=== PATIENT | male | born 1990 | race Caucasian/White ===

== ENCOUNTER 2019-12-24 19:24 | Observation (INO) | payer OTHER ==
[2019-12-24] MEDS ORDERED: NITROGLYCERIN OINT 1 INCH/GM PACKET TOPICAL STA (20:00)
[2019-12-24] MEDS ORDERED: ASPIRIN 81 MG PO STA (20:00)
--- NOTE | 2019-12-24 20:03 | ED ---
General Adult HPI - General Chief complaint: Chest Pain Stated complaint: Chest pain Time Seen by Provider: 12/24/19 19:50 Source: patient, family, RN notes reviewed Mode of arrival: ambulatory Limitations: no limitations - History of Present Illness Initial comments: Patient is a pleasant 29-year-old male presenting to the emergency Department with complaints of chest discomfort. Onset of symptoms was yesterday. Symptoms were worse yesterday. Discomfort is currently 4 or 5/10. Discomfort feels tight without radiation. Discomfort is slightly worse with inspiration. No dyspnea or nausea. Patient was sweaty couple of days ago however not with chest discomfort. No leg pain or leg swelling. Patient did have some fatigue or couple of weeks ago. Patient states 3 of his roommates were diagnosed with coronavirus at that time however he was negative. Patient still believes that he likely had the virus. - Related Data Allergies Allergy/AdvReac Type Severity Reaction Status Date / Time No Known Allergies Allergy Verified 12/24/19 19:28 Review of Systems ROS Statement: Those systems with pertinent positive or pertinent negative responses have been documented in the HPI. ROS Other: All systems not noted in ROS Statement are negative. Constitutional: Denies: fever Eyes: Denies: eye pain ENT: Denies: ear pain Respiratory: Denies: cough, dyspnea Cardiovascular: Reports: as per HPI, chest pain Endocrine: Reports: as per HPI Gastrointestinal: Denies: abdominal pain, nausea, vomiting Genitourinary: Denies: dysuria Musculoskeletal: Denies: back pain Skin: Denies: rash Neurological: Denies: weakness Past Medical History Past Medical History: No Reported History History of Any Multi-Drug Resistant Organisms: None Reported Past Surgical History: Tonsillectomy Smoking Status: Never smoker Past Alcohol Use History: None Reported Past Drug Use History: Marijuana General Exam Limitations: no limitations General appearance: alert, in no apparent distress Head exam: Present: normocephalic Eye exam: Present: normal appearance Neck exam: Present: normal inspection Respiratory exam: Present: normal lung sounds bilaterally. Absent: chest wall tenderness Cardiovascular Exam: Present: regular rate, normal rhythm Expanded Peripheral pulses: 2+: Radial (R), Radial (L), Posterior Tibialis (R), Posterior Tibialis (L) GI/Abdominal exam: Present: soft. Absent: tenderness Extremities exam: Present: normal inspection. Absent: pedal edema, calf tenderness Neurological exam: Present: alert Psychiatric exam: Present: normal affect, normal mood Skin exam: Present: normal color Course Vital Signs 12/24/19 19:24 Temperature 97.6 F Pulse Rate 80 Respiratory 18 Rate Blood Pressure 147/87 O2 Sat by Pulse 98 Oximetry - Reevaluation(s) Reevaluation #1: 12/24/19 20:03 I did review EKG from the office showing right bundle-branch block and T-wave inversion in inferior and lateral. EKG Findings - EKG Comments: EKG Findings:: Normal sinus rhythm at 76. [place] 138. QRS 92. QT 366. QTc 411. Normal axis. Right ventricular conduction delay. Lateral T wave inversion. In ferior flattening to T wave inversion. Medical Decision Making - Medical Decision Making Patient reevaluated and resting comfortably in bed. Patient and family updated on results and plan. Case discussed with Dr. Chavez, who will admit covering with Dr. Alexander. - Lab Data Result diagrams: 12/24/19 20:07 12/24/19 20:07 Lab Results 12/24/19 12/24/19 12/24/19 Range/Units 20:07 20:07 20:07 WBC 11.1 H (3.8-10.6) k/uL RBC 5.88 (4.30-5.90) m/uL Hgb 16.8 (13.0-17.5) gm/dL Hct 48.9 (39.0-53.0) % MCV 83.1 (80.0-100.0) fL MCH 28.5 (25.0-35.0) pg MCHC 34.4 (31.0-37.0) g/dL RDW 12.0 (11.5-15.5) % Plt Count 258 (150-450) k/uL MPV 7.0 Neutrophils % 56 % Lymphocytes % 34 % Monocytes % 6 % Eosinophils % 2 % Basophils % 1 % Neutrophils # 6.2 (1.3-7.7) k/uL Lymphocytes # 3.7 (1.0-4.8) k/uL Monocytes # 0.6 (0-1.0) k/uL Eosinophils # 0.3 (0-0.7) k/uL Basophils # 0.1 (0-0.2) k/uL PT 10.0 (9.0-12.0) sec INR 1.0 (<1.2) APTT 25.5 (22.0-30.0) sec D-Dimer <0.17 (<0.60) mg/L FEU Sodium 140 (137-145) mmol/L Potassium 4.0 (3.5-5.1) mmol/L Chloride 105 (98-107) mmol/L Carbon Dioxide 30 (22-30) mmol/L Anion Gap 5 mmol/L BUN 12 (9-20) mg/dL Creatinine 1.15 (0.66-1.25) mg/dL Est GFR (CKD-EPI)AfAm >90 (>60 ml/min/1.73 sqM) Est GFR (CKD-EPI)NonAf 86 (>60 ml/min/1.73 sqM) Glucose 90 (74-99) mg/dL Calcium 9.8 (8.4-10.2) mg/dL Magnesium 1.9 (1.6-2.3) mg/dL Total Bilirubin 0.9 (0.2-1.3) mg/dL AST 30 (17-59) U/L ALT 20 (4-49) U/L Alkaline Phosphatase 73 (38-126) U/L Troponin I (0.000-0.034) ng/mL Total Protein 7.2 (6.3-8.2) g/dL Albumin 4.6 (3.5-5.0) g/dL 12/24/19 Range/Units 20:07 WBC (3.8-10.6) k/uL RBC (4.30-5.90) m/uL Hgb (13.0-17.5) gm/dL Hct (39.0-53.0) % MCV (80.0-100.0) fL MCH (25.0-35.0) pg MCHC (31.0-37.0) g/dL RDW (11.5-15.5) % Plt Count (150-450) k/uL MPV Neutrophils % % Lymphocytes % % Monocytes % % Eosinophils % % Basophils % % Neutrophils # (1.3-7.7) k/uL Lymphocytes # (1.0-4.8) k/uL Monocytes # (0-1.0) k/uL Eosinophils # (0-0.7) k/uL Basophils # (0-0.2) k/uL PT (9.0-12.0) sec INR (<1.2) APTT (22.0-30.0) sec D-Dimer (<0.60) mg/L FEU Sodium (137-145) mmol/L Potassium (3.5-5.1) mmol/L Chloride (98-107) mmol/L Carbon Dioxide (22-30) mmol/L Anion Gap mmol/L BUN (9-20) mg/dL Creatinine (0.66-1.25) mg/dL Est GFR (CKD-EPI)AfAm (>60 ml/min/1.73 sqM) Est GFR (CKD-EPI)NonAf (>60 ml/min/1.73 sqM) Glucose (74-99) mg/dL Calcium (8.4-10.2) mg/dL Magnesium (1.6-2.3) mg/dL Total Bilirubin (0.2-1.3) mg/dL AST (17-59) U/L ALT (4-49) U/L Alkaline Phosphatase (38-126) U/L Troponin I <0.012 (0.000-0.034) ng/mL Total Protein (6.3-8.2) g/dL Albumin (3.5-5.0) g/dL - Radiology Data Radiology results: image reviewed (Chest x-ray reveals no acute process) Disposition Clinical Impression: Chest pain Disposition: ADMITTED IP TO THIS HOSP Is patient prescribed a controlled substance at d/c from ED?: No Referrals: Clinton Alexander MD [Primary Care Provider] - 1-2 days Decision Time: 21:14
[2019-12-24 20:27] LABS: Basophils # (A) 0.1 k/uL (0-0.2); Basophils % (A) 1 %; Eosinophils # (A) 0.3 k/uL (0-0.7); Eosinophils % (A) 2 %; HCT 48.9 % (39.0-53.0); HGB 16.8 gm/dL (13.0-17.5); Lymphocytes # (A) 3.7 k/uL (1.0-4.8); Lymphocytes % (A) 34 %; MCH 28.5 pg (25.0-35.0); MCHC 34.4 g/dL (31.0-37.0); MCV 83.1 fL (80.0-100.0); Monocytes # (A) 0.6 k/uL (0-1.0); Monocytes % (A) 6 %; Neutrophils # (A) 6.2 k/uL (1.3-7.7); Neutrophils % (A) 56 %; Platelet Count 258 k/uL (150-450); RBC 5.88 m/uL (4.30-5.90); WBC 11.1 k/uL (3.8-10.6)
[2019-12-24 20:33] LABS: ALT 20 U/L (4-49); AST 30 U/L (17-59); African American GFR (CKD) >90 (>60 ml/min/1.73 sqM); Albumin 4.6 g/dL (3.5-5.0); Alkaline Phosphatase 73 U/L (38-126); Anion Gap 5 mmol/L; Blood Urea Nitrogen 12 mg/dL (9-20); Calcium 9.8 mg/dL (8.4-10.2); Carbon Dioxide 30 mmol/L (22-30); Chloride 105 mmol/L (98-107); Glucose 90 mg/dL (74-99); Magnesium 1.9 mg/dL (1.6-2.3); Non-African American GFR(CKD) 86 (>60 ml/min/1.73 sqM); Sodium 140 mmol/L (137-145); Total Bilirubin 0.9 mg/dL (0.2-1.3); Total Protein 7.2 g/dL (6.3-8.2)
[2019-12-24 20:40] LABS: D-Dimer <0.17 mg/L FEU (<0.60); Partial Thromboplastin Time 25.5 sec (22.0-30.0)
--- NOTE | 2019-12-24 20:47 | XR ---
EXAMINATION TYPE: XR chest 2V DATE OF EXAM: 12/24/2019 COMPARISON: NONE HISTORY: Chest pain. TECHNIQUE: Frontal and lateral views of the chest are obtained. FINDINGS: There is no focal air space opacity, pleural effusion, or pneumothorax seen. The cardiac silhouette size is within normal limits. The osseous structures are intact. IMPRESSION: No acute cardiopulmonary process.
[2019-12-24] MEDS ORDERED: NITROGLYCERIN SL TABS 0.4 MG TAB SUBLINGUAL PRN (21:14)
[2019-12-24 21:59] VITALS: RESP 16
[2019-12-25] MEDS ORDERED: ACETAMINOPHEN TAB 325 MG TAB PO PRN (01:06)
[2019-12-25 03:30] LABS: Cholesterol 157 mg/dL (<200); HDL Cholesterol 24 mg/dL (40-60); LDL Cholesterol,Calculated 100 mg/dL (0-99); Triglycerides 166 mg/dL (<150)
[2019-12-25] MEDS: NITROGLYCERIN OINT 1 INCH/GM PACKET TOPICAL SCH ×3 (04:56→12:34)
[2019-12-25 08:24] VITALS: BP 130/84; PULSE 72; TEMP 97.9
[2019-12-25] MEDS ORDERED: ASPIRIN 325 MG TAB PO SCH (09:00)
--- NOTE | 2019-12-25 09:21 | P.CRDCN ---
History of Present Illness Consult date: 12/25/19 Consult reason: chest pain Chief complaint: Chest pain History of present illness: This is a pleasant 29-year-old gentleman with no prior documented history of hypertension, no diabetes, no hyperlipidemia, nonsmoker, rare EtOH, he does use marijuana on a weekly basis. Patient states that on December 09 his roommate and his girlfriend tested positive for COVID, he himself was also tested, results came back negative. He presents to the hospital with symptoms of midsternal chest pressure with mild radiation to his left arm and left leg. He denies any associated shortness of breath, but does state that he had some mild associated diaphoresis. His EKG on presentation here showed a normal sinus rhythm with T wave inversion noted in the inferior lateral leads. A repeat EKG was performed in the morning which showed persistence of changes with some mild improvement. His blood pressure 106/70 with a heart rate in the 70s, 98% on room air. White blood cell count 11.1, hemoglobin 16.8, platelet count 258. D- dimer 0.017. Sodium 140, potassium 4.0, BUN 12, creatinine 1.1. Troponins were negative 3. Cholesterol 157, triglycerides 166, LDL 100 and HDL 24. At the time of my examination this morning, the patient is currently chest pain-free. Past Medical History Past Medical History: No Reported History Additional Past Medical History / Comment(s): Shingles. Ear infections once a year. History of Any Multi-Drug Resistant Organisms: None Reported Past Surgical History: Tonsillectomy Smoking Status: Never smoker Past Alcohol Use History: None Reported Past Drug Use History: Marijuana Medications and Allergies Home Medications Medication Instructions Recorded Confirmed Type No Known Home Medications 12/24/19 12/24/19 History Allergies Allergy/AdvReac Type Severity Reaction Status Date / Time No Known Allergies Allergy Verified 12/24/19 21:51 Physical Exam Vitals: Vital Signs Temp Pulse Pulse Resp BP BP Pulse Ox 12/25/19 08:20 97.9 F 72 16 130/84 99 12/25/19 04:45 97.7 F 57 L 16 113/74 100 12/24/19 23:15 98.5 F 72 16 106/72 98 12/24/19 22:58 98.6 F 85 16 119/83 12/24/19 22:00 98.1 F 16 12/24/19 21:00 84 16 126/86 98 12/24/19 20:16 84 16 141/99 98 12/24/19 19:24 97.6 F 80 18 147/87 98 Intake and Output 12/24/19 12/25/19 12/25/19 22:59 06:59 14:59 Other: Voiding Method Toilet Toilet # Voids 1 Weight 97.522 kg 97.522 kg PHYSICAL EXAMINATION: GENERAL: 29-year-old gentleman in no acute distress at the time of my examination HEENT: Head is atraumatic, normocephalic. Pupils equal, round. Sclera anicte kahlil. Conjunctiva are clear. Mucous membranes of the mouth are moist. Neck is supple. There is no elevated jugular venous pressure. No carotid bruit is heard. HEART EXAMINATION: Heart S1, S2 normal. No murmur or gallop heard. CHEST EXAMINATION: Lungs are clear to auscultation and precussion. No chest wall tenderness is noted on palpation or with deep breathing. ABDOMEN: Soft, nontender. Bowel sounds are heard. No organomegaly noted. EXTREMITIES: 2+ peripheral pulses with no evidence of peripheral edema and no calf tenderness noted. NEUROLOGIC patient is awake, alert and oriented 3 . . Results 12/24/19 20:07 12/24/19 20:07 Cardiac Enzymes 12/24/19 12/24/19 12/24/19 Range/Units 20:07 20:07 22:57 AST 30 (17-59) U/L Troponin I <0.012 <0.012 (0.000-0.034) ng/mL 12/25/19 Range/Units 03:00 AST (17-59) U/L Troponin I <0.012 (0.000-0.034) ng/mL Coagulation 12/24/19 Range/Units 20:07 PT 10.0 (9.0-12.0) sec APTT 25.5 (22.0-30.0) sec Lipids 12/25/19 Range/Units 03:00 Triglycerides 166 H (<150) mg/dL Cholesterol 157 (<200) mg/dL HDL Cholesterol 24 L (40-60) mg/dL CBC 12/24/19 Range/Units 20:07 WBC 11.1 H (3.8-10.6) k/uL RBC 5.88 (4.30-5.90) m/uL Hgb 16.8 (13.0-17.5) gm/dL Hct 48.9 (39.0-53.0) % Plt Count 258 (150-450) k/uL Comprehensive Metabolic Panel 12/24/19 Range/Units 20:07 Sodium 140 (137-145) mmol/L Potassium 4.0 (3.5-5.1) mmol/L Chloride 105 (98-107) mmol/L Carbon Dioxide 30 (22-30) mmol/L BUN 12 (9-20) mg/dL Creatinine 1.15 (0.66-1.25) mg/dL Glucose 90 (74-99) mg/dL Calcium 9.8 (8.4-10.2) mg/dL AST 30 (17-59) U/L ALT 20 (4-49) U/L Alkaline Phosphatase 73 (38-126) U/L Total Protein 7.2 (6.3-8.2) g/dL Albumin 4.6 (3.5-5.0) g/dL Current Medications Generic Name Dose Route Start Last Admin Trade Name Freq PRN Reason Stop Dose Admin Acetaminophen 650 mg 12/25/19 01:06 12/25/19 04:57 Acetaminophen Tab 325 Mg Tab PO 650 mg Q6HR PRN Administration Fever and/ or Pain Aspirin 325 mg 12/25/19 09:00 12/25/19 08:53 Aspirin 325 Mg Tab PO 325 mg DAILY STEPHANIE Administration Nitroglycerin 0.4 mg 12/24/19 21:14 Nitroglycerin Sl Tabs 0.4 Mg Tab SUBLINGUAL Q5M PRN Chest Pain Nitroglycerin 1 inch 12/25/19 00:00 12/25/19 06:47 Nitroglycerin Oint 1 Inch/Gm Packet TOPICAL Not Given Q6HR STEPHANIE Sodium Chloride 10 ml 12/25/19 09:00 12/25/19 08:53 Sodium Chloride 0.9% Flush 10 Ml Syringe IV 10 ml BID STEPHANIE Administration Intake and Output 12/24/19 12/25/19 12/25/19 22:59 06:59 14:59 Other: Voiding Method Toilet Toilet # Voids 1 Weight 97.522 kg 97.522 kg 12/24/19 20:07 12/24/19 20:07 EKG Interpretations (text) EKG showed a normal sinus rhythm with inferior lateral T-wave inversion Assessment and Plan Plan: Assessment and plan #1 chest pain, atypical features for acute coronary syndrome. Troponins negative 3. EKG shows a normal sinus rhythm with inferior lateral T-wave inversion, d-dimer negative #2 cardiac risk factors negative for hypertension, no diabetes, no hyperlipidemia, nonsmoker, no family history of premature coronary artery disease #3 recent exposure to COVID 19, rapid testing came back negative #4 weekly marijuana use Plan We will obtain an echocardiogram with Doppler study. Patient has also been advised to undergo stress echocardiographic study which will be performed today. Further recommendations will be based on the findings of his testing, and the patient's overall clinical course. DNP note has been reviewed, I agree with a documented findings and plan of care. Patient was seen and examined.
--- NOTE | 2019-12-25 10:00 | ECHOF ---
Referral Reason:Chest pain MEASUREMENTS -------- HEIGHT: 185.4 cm WEIGHT: 97.5 kg BP: 106/72 RVIDd: 3.3 cm (< 3.3) IVSd: 1.0 cm (0.6 - 1.1) LVIDd: 4.5 cm (3.9 - 5.3) LVPWd: 1.1 cm (0.6 - 1.1) IVSs: 1.5 cm LVIDs: 3.2 cm LVPWs: 1.8 cm LA Diam: 3.2 cm (2.7 - 3.8) LAESV Index (A-L): 22.15 ml/m Ao Diam: 3.0 cm (2.0 - 3.7) AV Cusp: 1.9 cm (1.5 - 2.6) MV EXCURSION: 23.102 mm (> 18.000) MV EF SLOPE: 137 mm/s (70 - 150) EPSS: 0.4 cm MV E Billy: 0.97 m/s MV DecT: 283 ms MV A Billy: 0.53 m/s MV E/A Ratio: 1.84 RAP: 5.00 mmHg RVSP: 17.98 mmHg FINDINGS -------- Sinus rhythm. This was a technically good study. The left ventricular size is normal. Left ventricular wall thickness is normal. Overall left vent ricular systolic function is normal with, an EF between 60 - 65 %. The right ventricle is mildly enlarged. Normal LA size by volume 22+/-6 ml/m2. The right atrium is normal in size. Interatrial and interventricular septum intact. The aortic valve is trileaflet and appears structurally normal. The mitral valve is normal. Mild tricuspid regurgitation present. Right ventricular systolic pressure is normal at < 35 mmHg. There is no pulmonic regurgitation present. The aortic root size is normal. Normal inferior vena cava with normal inspiratory collapse consistent with estimated right atrial pre ssure of 5 mmHg. The inferior vena cava is mildly dilated. There is no pericardial effusion. CONCLUSIONS -------- 1. The left ventricular size is normal. 2. Left ventricular wall thickness is normal. 3. Overall left ventricular systolic function is normal with, an EF between 60 - 65 %. 4. The right ventricle is mildly enlarged. 5. Mild tricuspid regurgitation present. 6. The inferior vena cava is mildly dilated. 7. There is no pericardial effusion. COMMUTATOR INSPECTOR: Keri Whitney RDCS
--- NOTE | 2019-12-25 13:12 | ECHOS ---
STRESS ECHOCARDIOGRAM LUMASON: Vial INDICATIONS: Chest pain. MEDICATIONS: BASELINE HEART RATE: 83 BASELINE BLOOD PRESSURE: 123/89 MAXIMUM HEART RATE: 177 MAXIMUM BLOOD PRESSURE: 183/67 85% MPHR: 162 100% MPHR: 190 METS: 11.5 MAXIMUM STAGE REACHED: III TOTAL EXERCISE TIME: 10:01 CLINICAL INFORMATION: Baseline EKG shows sinus rhythm, normal axis, normal intervals, with nonspecific ST-T wave changes. Patient exercised on Abram protocol for a total of 10 minutes achieving 11 METS, 93% of predicted maximal heart rate without chest pain or diagnostic ST- segment depression. Baseline echo shows normal left ventricular size, wall motion systolic function. Postexercise there is normal hyperdynamic response of all segments of myocardium noted. CONCLUSION: 1. Excellent exercise tolerance. 2. Negative stress test by EKG criteria. 3. Negative stress echo. MMODL / IJN: [id number] /
[2019-12-25] MEDS ORDERED: NAPROXEN 250 MG TAB PO STA (13:21)
[2019-12-25] MEDS ORDERED: COLCHICINE 0.6 MG EACH PO SCH (13:30)
--- NOTE | 2019-12-25 23:09 | P.HPIM ---
History of Present Illness H&P Date: 12/25/19 Chief Complaint: Chest pain History of presenting complaint: This is a pleasant 29-year-old patient of Dr. Clinton Alexander. Rather good health. Patient on December 08 met a friend of his with her good friend and patient was present with his girlfriend. They called him and told him that that tested positive for COVID. On December 09 patient and his girlfriend got tested for COVID. His girlfriend came back positive not him. For last 3 foot days patient been having burning pressure-like sensation in the chest. On and off. No fever no chills no change in appetite. No change in smell or taste. A couple of days patient did have some diarrhea. Otherwise rather active. Admitted for the same. Occasionally gets heartburn. Review of systems: GEN.: None EYES: None HEENT: None NECK: None RESPIRATORY: None CARDIOVASCULAR: As above GASTROINTESTINAL: None GENITOURINARY: None MUSCULOSKELETAL: None LYMPHATICS: None HEMATOLOGICAL: None PSYCHIATRY: None NEUROLOGICAL: None Past medical history to include: Shingles, ear infection Social history: Lives with girlfriend. Does not smoke. Marijuana occasionally. Works in sales Family history: Reviewed, noncontributory to presentation Physical examination: VITAL SIGNS: 97.6, 80, 18, 147/87, 98% on room air GENERAL: BMI 28.4, sitting up, comfortable. EYES: Pupils equal. Conjunctiva normal. HEENT: External appearance of nose and ears normal, oral cavity grossly normal. NECK: JVD not raised; masses not palpable. HEART: First and second heart sounds are normal; no edema. LUNGS: Respiratory rate normal; clear to auscultation. ABDOMEN: Soft, nontender, liver spleen not palpable, no masses palpable. PSYCH: Alert and oriented x3; mood and affect normal. NEUROLOGICAL: Cranial nerves grossly intact; no facial asymmetry, power and sensation grossly intact. LYMPHATICS: No lymph nodes palpable in the axilla and neck INVESTIGATIONS, reviewed in the clinical context: White count 11.1 hemoglobin 16.8 platelets 258 potassium 4 creatinine 1.15 LDL 100 EKG tracing personally reviewed by me-sinus rhythm, some cough elevation ST in lead V1 and V2 and some T wave changes. 2-D echocardiogram EF 60-65% Assessment: -Patient presents as a burning pressure-like sensation in the chest. Some nonspecific T-wave changes. Patient does not have any obvious COVID 19 findings. Possible mild pericarditis Plan: Cardiology was consulted. Patient undergo a stress echocardiogram. Started on naproxen". colchicine. Past Medical History Past Medical History: No Reported History Additional Past Medical History / Comment(s): Shingles. Ear infections once a year. History of Any Multi-Drug Resistant Organisms: None Reported Past Surgical History: Tonsillectomy Smoking Status: Never smoker Past Alcohol Use History: None Reported Past Drug Use History: Marijuana Medications and Allergies Home Medications Medication Instructions Recorded Confirmed Type Colchicine [Colcrys] 0.6 mg PO BID #60 each 12/25/19 Rx Naproxen [Naprosyn] 250 mg PO BID #30 tab 12/25/19 Rx Allergies Allergy/AdvReac Type Severity Reaction Status Date / Time No Known Allergies Allergy Verified 12/24/19 21:51 Physical Exam Vitals: Vital Signs Temp Pulse Resp BP Pulse Ox 12/25/19 08:20 97.9 F 72 16 130/84 99 12/25/19 04:45 97.7 F 57 L 16 113/74 100 12/24/19 23:15 98.5 F 72 16 106/72 98 Intake and Output 12/25/19 12/25/19 12/26/19 14:59 22:59 06:59 Intake Total 480 Balance 480 Intake: Oral 480 Other: Voiding Method Toilet # Voids 2 Weight 97.52 kg Results CBC & Chem 7: 12/24/19 20:07 12/24/19 20:07 Labs: Abnormal Lab Results - Last 24 Hours (Table) 12/25/19 Range/Units 03:00 Triglycerides 166 H (<150) mg/dL LDL Cholesterol, Calc 100 H (0-99) mg/dL HDL Cholesterol 24 L (40-60) mg/dL Thrombosis Risk Factor Assmnt - Choose All That Apply Any of the Below Risk Factors Present?: No Other Risk Factors: No Thrombosis Risk Factor Assessment Level: Very Low Risk
--- NOTE | 2019-12-25 23:12 | P.DS ---
Providers Date of admission: 12/24/19 21:16 Expected date of discharge: 12/25/19 Attending physician: Brett Chavez Consults: 12/24/19 21:15 Consult Physician Urgent Consulting Provider: Arnold Smith Consult Reason/Comments: cp Do you want consulting provider notified?: Yes Primary care physician: Clinton Alexander [facility] Course: Chief Complaint: Chest pain History of presenting complaint: This is a pleasant 29-year-old patient of Dr. Clinton Alexander. Rather good health. Patient on December 08 met a friend of his with her good friend and patient was present with his girlfriend. They called him and told him that that tested positive for COVID. On December 09 patient and his girlfriend got tested for COVID. His girlfriend came back positive not him. For last 3 foot days patient been having burning pressure-like sensation in the chest. On and off. No fever no chills no change in appetite. No change in smell or taste. A couple of days patient did have some diarrhea. Otherwise rather active. Admitted for the same. Occasionally gets heartburn. Patient may have a mild pericarditis. Put on naproxen and colchicine. Stress echocardiogram was negative. Cleared by cardiology. 2-D echocardiogram showed a preserved LV function. Consultation: Dr. Karen Smith from cardiology Physical examination: VITAL SIGNS: 97.9, 72, 16, 130/84, 99% room air GENERAL: BMI 28.4, sitting up, comfortable. EYES: Pupils equal. Conjunctiva normal. NECK: JVD not raised; masses not palpable. HEART: First and second heart sounds are normal; no edema. LUNGS: Respiratory rate normal; clear to auscultation. ABDOMEN: Soft, nontender, liver spleen not palpable, no masses palpable. PSYCH: Alert and oriented x3; mood and affect normal. INVESTIGATIONS, reviewed in the clinical context: White count 11.1 hemoglobin 16.8 platelets 258 potassium 4 creatinine 1.15 LDL 100 EKG tracing personally reviewed by me-sinus rhythm, some cough elevation ST in lead V1 and V2 and some T wave changes. 2-D echocardiogram EF 60-65% Assessment: -Possible mild viral pericarditis Disposition: Home Patient Condition at Discharge: Stable Plan - Discharge Summary Discharge Rx Participant: No New Discharge Prescriptions: New Colchicine [Colcrys] 0.6 mg PO BID #60 each Naproxen [Naprosyn] 250 mg PO BID #30 tab Discharge Medication List Colchicine [Colcrys] 0.6 mg PO BID #60 each 12/25/19 [Rx] Naproxen [Naprosyn] 250 mg PO BID #30 tab 12/25/19 [Rx] Follow up Appointment(s)/Referral(s): Clinton Alexander MD [Primary Care Provider] - 01/01/20 2:00 pm Arnold Smith MD [STAFF PHYSICIAN] - 01/10/20 3:45 pm Patient Instructions/Handouts: Chest Pain (DC) Discharge Disposition: HOME SELF-CARE
== END 2019-12-25 14:40 | disposition home or self-care (01) ==
LOC: EC 19:24 → 3NCARDOBS 21:16
PROVIDERS: ADMIT Hospitalist; ATTEND Hospitalist
DX: R07.89 Other chest pain (principal); R61 Generalized hyperhidrosis; R19.7 Diarrhea, unspecified; R12 Heartburn; Z86.19 Personal history of other infectious and parasitic diseases; Z20.828 Contact with and (suspected) exposure to other viral communicable diseases
CPT/HCPCS: 93005 ×2; 99285; 36415; 93306; 93351; 85379; 80061; 80053; 85652; 83735; 84484 ×2; 85025; 85610; 85730; 86140; 71046; G0378 ×2